=== PATIENT | female | born 1970 | race Hispanic/Latino ===

== ENCOUNTER 2016-07-23 01:04 | Emergency (ER) | payer OTHER ==
[2016-07-23 03:10] LABS: Basophils % (Auto) 1.3 % (0.0-1.8); Eosinophils % (Auto) 1.2 % (0.0-4.3); Hematocrit 38.2 % (30.3-42.9); Hemoglobin 12.7 gm/dl (10.1-14.3); Mean Corpuscular HGB Conc 33 % (30-34); Mean Corpuscular Hemoglobin 32 pg (28-32); Mean Corpuscular Volume 97 fl (79-97); Platelet Count 204 K/mm3 (140-440); Red Blood Count 3.93 M/mm3 (3.65-5.03); Red Cell Distribution Width 19.3 % (13.2-15.2); White Blood Count 11.7 K/mm3 (4.5-11.0)
[2016-07-23 03:15] LABS: Bilirubin,Urine NEG (Negative); Blood,Urine SM (Negative); Ketones,Urine NEG (Negative); Leukocyte Esterase,Urine NEG (Negative); Nitrite,Urine NEG (Negative); Protein,Urine <15 mg/dL mg/dL (Negative); RBC,Urine < 1.0 /HPF (0.0-6.0); Urobilinogen,Urine < 2.0 mg/dL (<2.0)
[2016-07-23 03:16] LABS: WBC,Urine < 1.0 /HPF (0.0-6.0)
[2016-07-23 03:24] LABS: Anion Gap 23 mmol/L; BUN/Creatinine Ratio 12.85; Blood Urea Nitrogen 9 mg/dL (7-17); Calcium 9.3 mg/dL (8.4-10.2); Carbon Dioxide 23 mmol/L (22-30); Chloride 97.8 mmol/L (98-107); Glucose 109 mg/dL (65-100); Sodium 141 mmol/L (137-145)
[2016-07-23 03:28] LABS: Potassium 2.9 mmol/L (3.6-5.0)
[2016-07-23] MEDS ORDERED: VITAMIN B-1 100 MG, FOLVITE 1 MG, INFUVITE 10 ML in NACL 0.9% 1000 ML 1,000 ML IV ONE (03:29)
[2016-07-23] MEDS ORDERED: K-DUR PO ONE (03:29)
--- NOTE | 2016-07-23 04:48 | Emergency Department Report ---
ED Chest Pain HPI - General Chief Complaint: Chest Pain Stated Complaint: ETOH/CHEST PAIN Time Seen by Provider: 07/23/16 03:28 Source: patient, EMS Mode of arrival: Stretcher Limitations: No Limitations, Altered Mental Status - History of Present Illness Initial Comments: 45 year-old female with a past nontender history of hypertension and alcohol abuse presents to the hospital complaints of chest pain. Patient states she has had intermittent sharp mid chest pain for a couple weeks. Today chest pain was burning and radiated to his also she came into the hospital to be evaluated. Patient does state she had shortness of breath. Patient does not have any symptoms currently as intermittent bleeding throughout the ED without difficulty. Positive EtOH on breath. Patient admits to alcohol use today but does not quantify how much and what she drank. She denies daily alcohol use ever, and in January 2016 patient was here acutely intoxicated with suspected drug overdose as well. Patient smokes cigarettes. She doesn't know her family history. She states that this to 4 years ago she had a negative stress test. Severity scale (0 -10): 7 - Related Data Previous Rx's Medication Instructions Recorded Last Taken Type Omeprazole Magnesium [PriLOSEC Otc] 20 mg PO QDAY #30 tablet. 07/23/16 Unknown Rx Potassium Chloride [K-Dur] 20 meq PO QDAY #3 tablet 07/23/16 Unknown Rx Allergies Allergy/AdvReac Type Severity Reaction Status Date / Time hydromorphone HCl Allergy Unknown Verified 07/23/16 01:51 [From Dilaudid] SUNI score - Suni Score Age > 65: (0) No Aspirin use within the Past 7 Days: (0) No 3 or more CAD Risk Factors: (0) No 2 or more Angina events in past 24 hrs: (0) No Known CAD with more than 50% Stenosis: (0) No Elevated Cardiac Markers: (0) No ST Deviation Greater than 0.5mm: (0) No SUNI Score: 0 ED Review of Systems ROS: Stated complaint: ETOH/CHEST PAIN Other details as noted in HPI Comment: All other systems reviewed and negative Other: Constitutional: No fevers chills Eyes: No eye pain visual changes ENT: No ear pain or throat pain Neck: Denies pain Respiratory: Denies cough wheezing Cardiovascular: Denies palpitations, syncope GI: Denies abdominal pain, nausea, vomiting, diarrhea : Denies dysuria Musculoskeletal: Denies back pain Skin: Denies rash, lesions, erythema Neurologic: Denies headache, numbness, weakness Psychiatric: Denies suicidal ideation, hallucinations ED Past Medical Hx - Past Medical History Previous Medical History?: Yes Hx Hypertension: Yes - Surgical History Past Surgical History?: No - Social History Smoking Status: Never Smoker Substance Use Type: Alcohol, Prescribed - Medications Home Medications: Home Medications Medication Instructions Recorded Confirmed Last Taken Type Omeprazole Magnesium [PriLOSEC Otc] 20 mg PO QDAY #30 tablet. 07/23/16 Unknown Rx Potassium Chloride [K-Dur] 20 meq PO QDAY #3 tablet 07/23/16 Unknown Rx ED Physical Exam - General Limitations: No Limitations, Altered Mental Status - Other Other exam information: General: No limitations, patient is alert in no acute distress Head exam: Atraumatic, normocephalic Eyes exam: Normal appearance ENT: Moist mucous membrane, normal oropharynx Neck exam: Normal inspection, full range of motion, no meningismus nontender Respiratory exam: Clear to auscultation bilateral, no wheezes, rales, crackles Cardiovascular: Normal rate and rhythm, normal heart sounds Abdomen: Soft, nondistended, and nontender, with normal bowel sounds, no rebound, or guarding Extremity: Full range of motion normal inspection no deformity Back: Normal Inspection, full range of motion, no tenderness Neurologic: Alert, oriented x3, cranial nerves intact, no motor or sensory deficit, steady gait Psychiatric: normal affect, normal mood, EtOH on breath Skin: Warm, dry, intact ED Course Vital Signs 07/23/16 07/23/16 03:02 05:37 Pulse Rate 99 H 98 H Respiratory 22 18 Rate Blood Pressure 118/70 118/63 [Right] O2 Sat by Pulse 95 98 Oximetry - Reevaluation(s) Reevaluation #1: 07/23/16 06:03 pt is walking around in Ed with steady gait. Received banana bag, iv pepcid and by mouth potassium. 07/23/16 06:06 ED Medical Decision Making - Lab Data Result diagrams: 07/23/16 02:48 07/23/16 02:48 Lab Results 07/23/16 07/23/16 07/23/16 Range/Units 02:39 02:48 02:48 WBC 11.7 H (4.5-11.0) K/mm3 RBC 3.93 (3.65-5.03) M/mm3 Hgb 12.7 (10.1-14.3) gm/dl Hct 38.2 (30.3-42.9) % MCV 97 (79-97) fl MCH 32 (28-32) pg MCHC 33 (30-34) % RDW 19.3 H (13.2-15.2) % Plt Count 204 (140-440) K/mm3 Lymph % (Auto) 37.8 H (13.4-35.0) % [place] % (Auto) 5.6 (0.0-7.3) % Eos % (Auto) 1.2 (0.0-4.3) % Baso % (Auto) 1.3 (0.0-1.8) % Lymph # 4.4 (1.2-5.4) K/mm3 [place] # 0.7 (0.0-0.8) K/mm3 Eos # 0.1 (0.0-0.4) K/mm3 Baso # 0.1 (0.0-0.1) K/mm3 Seg Neutrophils % 54.1 (40.0-70.0) % Seg Neutrophils # 6.3 (1.8-7.7) K/mm3 Sodium 141 (137-145) mmol/L Potassium 2.9 L* (3.6-5.0) mmol/L Chloride 97.8 L (98-107) mmol/L Carbon Dioxide 23 (22-30) mmol/L Anion Gap 23 mmol/L BUN 9 (7-17) mg/dL Creatinine 0.7 (0.7-1.2) mg/dL Estimated GFR > 60 ml/min BUN/Creatinine Ratio 12.85 % Glucose 109 H (65-100) mg/dL Calcium 9.3 (8.4-10.2) mg/dL Magnesium (1.7-2.3) mg/dL Troponin T < 0.010 (0.00-0.029) ng/mL Urine Color Straw (Yellow) Urine Turbidity Clear (Clear) Urine pH 6.0 (5.0-7.0) Ur Specific [place] 1.002 L (1.003-1.030) Urine Protein <15 mg/dl (Negative) mg/dL Urine Glucose (UA) Neg (Negative) mg/dL Urine Ketones Neg (Negative) mg/dL Urine Blood Sm (Negative) Urine Nitrite Neg (Negative) Urine Bilirubin Neg (Negative) Urine Urobilinogen < 2.0 (<2.0) mg/dL Ur Leukocyte Esterase Neg (Negative) Urine WBC (Auto) < 1.0 (0.0-6.0) /HPF Urine RBC (Auto) < 1.0 (0.0-6.0) /HPF Urine HCG, Qual Negative (Negative) Plasma/Serum Alcohol (0-0.07) gm% 07/23/16 07/23/16 Range/Units 02:48 03:29 WBC (4.5-11.0) K/mm3 RBC (3.65-5.03) M/mm3 Hgb (10.1-14.3) gm/dl Hct (30.3-42.9) % MCV (79-97) fl MCH (28-32) pg MCHC (30-34) % RDW (13.2-15.2) % Plt Count (140-440) K/mm3 Lymph % (Auto) (13.4-35.0) % [place] % (Auto) (0.0-7.3) % Eos % (Auto) (0.0-4.3) % Baso % (Auto) (0.0-1.8) % Lymph # (1.2-5.4) K/mm3 [place] # (0.0-0.8) K/mm3 Eos # (0.0-0.4) K/mm3 Baso # (0.0-0.1) K/mm3 Seg Neutrophils % (40.0-70.0) % Seg Neutrophils # (1.8-7.7) K/mm3 Sodium (137-145) mmol/L Potassium (3.6-5.0) mmol/L Chloride (98-107) mmol/L Carbon Dioxide (22-30) mmol/L Anion Gap mmol/L BUN (7-17) mg/dL Creatinine (0.7-1.2) mg/dL Estimated GFR ml/min BUN/Creatinine Ratio % Glucose (65-100) mg/dL Calcium (8.4-10.2) mg/dL Magnesium 1.90 (1.7-2.3) mg/dL Troponin T (0.00-0.029) ng/mL Urine Color (Yellow) Urine Turbidity (Clear) Urine pH (5.0-7.0) Ur Specific [place] (1.003-1.030) Urine Protein (Negative) mg/dL Urine Glucose (UA) (Negative) mg/dL Urine Ketones (Negative) mg/dL Urine Blood (Negative) Urine Nitrite (Negative) Urine Bilirubin (Negative) Urine Urobilinogen (<2.0) mg/dL Ur Leukocyte Esterase (Negative) Urine WBC (Auto) (0.0-6.0) /HPF Urine RBC (Auto) (0.0-6.0) /HPF Urine HCG, Qual (Negative) Plasma/Serum Alcohol 0.45 H (0-0.07) gm% - EKG Data -: EKG Interpreted by Me (sinus tach 102, no stemi) - EKG Data When compared to previous EKG there are: previous EKG unavailable - Medical Decision Making Patient is a alcoholic with hypokalemia. By mouth potassium was supplemented. Chest pain is burning in nature and patient denies having pain currently. EKG does not shows hyperkalemia, cardiac enzymes negative 1 and a second set will be checked. Patient needs to sober up more prior to discharge will be s/o to Dr. Madison to be checked second cardiac enzyme and discharge when patient can have a safe ride home. Patient requesting medication for hypertension, no signs of hypertension. Despite that patient has not been on blood pressure medications for quite some time. I will recommend outpatient follow-up for repeat blood pressure testing to determine if blood pressure medication as needed. - Differential Diagnosis alcohol, drug abuse, mi, unstable angina, gerd Critical Care Time: No Critical care attestation.: If time is entered above; I have spent that time in minutes in the direct care of this critically ill patient, excluding procedure time. ED Disposition Clinical Impression: Alcohol intoxication, Atypical chest pain, GERD (gastroesophageal reflux disease), Hypokalemia Disposition: DISCHARGED TO HOME OR SELFCARE Is pt being admited?: No Does the pt Need Aspirin: No Condition: Stable Instructions: Chest Pain (ED), Alcohol Intoxication (ED), Gastroesophageal Reflux Disease (ED) Additional Instructions: Take the medications as prescribed. Follow up with your doctor with the clinic provided for further evaluation and recheck of your blood pressure. Return if symptoms worsen. Prescriptions: Omeprazole Magnesium [PriLOSEC Otc] 20 mg PO QDAY #30 tablet. Potassium Chloride [K-Dur] 20 meq PO QDAY #3 tablet Referrals: PRIMARY CARE, [Primary Care Provider] - 3-5 Days [facility] [Provider Group] - 3-5 Days MITCHEL WAGONER MD [Staff Physician] - 3-5 Days
[2016-07-23] MEDS ORDERED: PEPCID IV ONE (05:10)
[2016-07-23 13:22] VITALS: BP 128/74
== END 2016-07-23 13:20 | disposition home or self-care (01) ==
LOC: ED 01:04
DX: K21.9 Gastro-esophageal reflux disease without esophagitis (principal); F10.129 Alcohol abuse with intoxication, unspecified; R07.89 Other chest pain; E87.6 Hypokalemia; I10 Essential (primary) hypertension
CPT/HCPCS: 36415; 80048; 81001; 81025; 83735; 84484; 85025; 96365; 96366; 96375; 99285; G0480; J3411; J7030; 80320